=== PATIENT | male | born 2000 | race Caucasian/White ===

== ENCOUNTER 2021-01-01 06:21 | Day surgery (SDC) | payer OTHER ==
[2021-01-01] VITALS (7 sets, daily range): BP systolic 98–118; BP diastolic 54–59
[~2021-01-01] VITALS: Ht 175.3 cm; Wt 57.8 kg
[2021-01-01] MEDS ORDERED: ONDANSETRON 4MG/2ML VIAL IV ONE (07:15)
[2021-01-01] MEDS ORDERED: KETOROLAC 30 MG/ML 1ML VIAL IV ONE (07:15)
[2021-01-01] MEDS ORDERED: NS 1,000 ML IV ONE (07:15)
[2021-01-01 08:14] LABS: BASO # 0.1 10^3/uL (0.0-0.2); BASO % 0.3 % (0.0-1.0); EOS % 0.2 % (0.0-3.0); HEMATOCRIT 42.2 % (42.0-52.0); HEMOGLOBIN 15.7 g/dl (13.5-17.5); LYMPH # 0.9 10^3/uL (1.5-5.0); LYMPH % 4.5 % (24.0-44.0); MEAN CORPUSCULAR HEMOGLOBIN 31.1 pg (27.0-33.0); MEAN CORPUSCULAR VOLUME 83.6 fl (80.0-96.0); MONO # 1.3 10^3/uL (0.0-0.8); MONO % 6.7 % (2.0-8.0); NEUTROPHILS % 87.8 % (36.0-66.0); PLATELET COUNT, AUTOMATED 341 10^3/uL (150-450); RED BLOOD COUNT 5.05 10^6/uL (4.30-6.10); WHITE BLOOD COUNT 19.4 10^3/uL (4.0-10.0)
[2021-01-01 08:15] LABS: MEAN CORPUSCULAR HGB CONC 37.2 g/dl (32.0-36.5)
[2021-01-01 08:24] LABS: ALBUMIN 4.5 GM/DL (3.2-5.2); ALT/SGPT 52 U/L (12-78); BILIRUBIN,DIRECT 0.4 MG/DL (0.0-0.2); BILIRUBIN,TOTAL 1.1 MG/DL (0.2-1.0); BLOOD UREA NITROGEN 12 MG/DL (7-18); CALCIUM LEVEL 9.7 MG/DL (8.5-10.1); CARBON DIOXIDE LEVEL 24 MEQ/L (21-32); CHLORIDE LEVEL 104 MEQ/L (98-107); CREATININE FOR GFR 0.81 MG/DL (0.70-1.30); GLUCOSE, FASTING 129 MG/DL (70-100); LIPASE 37 U/L (73-393); POTASSIUM SERUM 3.5 MEQ/L (3.5-5.1); SODIUM LEVEL 138 MEQ/L (136-145); TOTAL PROTEIN 8.1 GM/DL (6.4-8.2)
--- NOTE | 2021-01-01 08:34 | REP ---
INDICATION: Abdominal Pain COMPARISON: None. TECHNIQUE: Upright view of the chest with supine and upright views of the abdomen and pelvis. FINDINGS: Frontal upright view of the chest demonstrates no acute cardiopulmonary process or free air below the diaphragm to suspect pneumoperitoneum. Supine and upright views of the abdomen and pelvis demonstrate nonspecific bowel gas pattern without obstruction or perforation. No organomegaly. No abnormal calcifications. Skeletal structures normal for age. IMPRESSION: Nonspecific bowel gas pattern. <Electronically signed by Richmond Drummond > 01/01/21 [id number]
[2021-01-01] MEDS ORDERED: ISOVUE-370 76% 100ML VIAL As Ordered ONE (10:04)
--- NOTE | 2021-01-01 10:27 | REP ---
INDICATION: diffuse abd pain, n/v, leukocytosis. COMPARISON: None TECHNIQUE: Axial contrast-enhanced images from the lung bases to the pubic symphysis using 100 cc Isovue 370 intravenous contrast material. . This CT examination was performed using the following dose reduction techniques: Automated exposure control, adjustment of mA and/or kv according to the patient's size, and the use of iterative reconstruction technique. FINDINGS: Acute appendicitis is appreciated with fluid-filled appendix measuring up to 20 mm including 5 mm appendicular in the proximal appendix and a 14 mm obstructing appendicolith at the base of the appendix. Mild surrounding inflammatory stranding noted. Small amount of free fluid extends into the pelvis. No free air or drainable collection/abscess. Liver, spleen, pancreas, gallbladder, bilateral adrenal glands and kidneys are normal. No evidence for bowel obstruction. Pelvis demonstrates normal bladder and age-appropriate prostate/seminal vesicles. Abdominal aorta and vasculature are normal. Surrounding musculoskeletal structures are intact. Lung bases are clear. IMPRESSION: 1. Acute appendicitis including 14 mm obstructing appendicolith at the base of the appendix distending the appendix to 20 mm with mild surrounding inflammatory stranding and small amount of free fluid. No evidence for drainable collection/abscess or free air to suggest perforation. <Electronically signed by Richmond Drummond > 01/01/21 [id number]
[2021-01-01] MEDS ORDERED: PIPERACILLIN/TAZOBACTAM SOD 3.375 GM in D5W MINI-BAG PLUS 50 ML IV ONE (11:15)
[2021-01-01] MEDS ORDERED: VITMTA PO (11:27)
[2021-01-01] MEDS ORDERED: CETI10CA2 PO (11:27)
[2021-01-01] MEDS ORDERED: LACT3000 PO (11:27)
[2021-01-01] MEDS ORDERED: ONDANSETRON 4MG/2ML VIAL IV PRN ×2 (11:50→15:20)
[2021-01-01 11:57] LABS: RSV AMPLIFICATION NEGATIVE (NEGATIVE)
[2021-01-01] MEDS: KETOROLAC 30 MG/ML 1ML VIAL IV PRN (12:25)
[2021-01-01] MEDS: NS 1,000 ML IV SCH ×2 (12:35→18:02)
[2021-01-01] MEDS ORDERED: LIDOCAINE 2% 100MG/5ML SDV (FOR ANES.) As Ordered ONE (12:56)
[2021-01-01] MEDS ORDERED: KETOROLAC 60MG 2ML VIAL As Ordered ONE (12:56)
[2021-01-01] MEDS ORDERED: ROCURONIUM BROMIDE 50 MG/5 ML VIAL As Ordered ONE (12:56)
[2021-01-01] MEDS ORDERED: propofoL 200 MG/20 ML VIAL As Ordered ONE (12:56)
[2021-01-01] MEDS ORDERED: dexameTHASONE 4 MG/ML 1ML VIAL (J1100 PER 1MG) As Ordered ONE (12:56)
[2021-01-01] MEDS ORDERED: ONDANSETRON 4MG/2ML VIAL As Ordered ONE (12:56)
[2021-01-01] MEDS ORDERED: MIDAZOLAM INJ 2MG/2ML VIAL (J2250 PER 1MG) As Ordered ONE (12:56)
[2021-01-01] MEDS ORDERED: SUGAMMADEX SODIUM 500 MG/5 ML VIAL (BRIDION) As Ordered ONE (12:56)
[2021-01-01] MEDS ORDERED: ACETAMINOPHEN 1000MG 100ML IV BTL (OFIRMEV) (J0131 PER 10MG) As Ordered ONE (12:56)
[2021-01-01] MEDS ORDERED: fentaNYL 100 MCG/2 ML INJECTION (J3010) As Ordered ONE ×2 (12:57→14:26)
[2021-01-01] MEDS ORDERED: BUPIVACAINE/EPIN 0.25% 30 ML VIAL As Ordered ONE (13:53)
[2021-01-01] MEDS ORDERED: HYDROMORPHONE HCL 0.5 MG/ 0.5 ML SYRINGE (J1170 PER 1) IV PRN (15:20)
[2021-01-01] MEDS ORDERED: LR 500 ML IV SCH (15:20)
[2021-01-01] MEDS ORDERED: METOCLOPRAMIDE INJ 10MG/2ML VIAL (J2765 PER 1) IV PRN (15:20)
[2021-01-01] MEDS ORDERED: MEPERIDINE INJ 25 MG/ML VIAL (J2175) IV PRN (15:20)
[2021-01-01] MEDS: SENOKOT S TAB PO SCH ×2 (17:46→20:27)
[2021-01-01] MEDS: PANTOPRAZOLE 40MG TAB (PROTONIX) PO SCH (17:46)
[2021-01-01] MEDS: NORCO, ANEXSIA 5/325MG TABLET (HYDROcodone/ACETAMINOPHEN) PO PRN (18:00)
[2021-01-01] MEDS: PIPERACILLIN/TAZOBACTAM SOD 3.375 GM in D5W MINI-BAG PLUS 50 ML IV SCH ×2 (18:03→23:35)
--- NOTE | 2021-01-01 23:39 | CR ---
CONSULTATION DATE: 01/01/2021 REASON FOR CONSULTATION: Abdominal pain HISTORY OF PRESENT ILLNESS: The patient is a 20-year-old male who presents with right lower quadrant abdominal pain, nausea and vomiting. His pain has been going on for the past day. It has been getting worse. He came into the Emergency Room, had an elevated white count, as well as a CT positive for appendicitis. Recommendation is to proceed with urgent surgery. I went to evaluate him in the Emergency Room. He had pretty significant tenderness, and also starting to have some fevers. The plan was to take him to the Operating Room for urgent surgery. PAST MEDICAL HISTORY: Negative. PAST SURGICAL HISTORY: Negative. ALLERGIES: None. HOME MEDICATIONS: None. SOCIAL HISTORY: Denies drug, alcohol or tobacco abuse. REVIEW OF SYSTEMS: Pertinent positives and negatives as stated in the HPI. PHYSICAL EXAMINATION: GENERAL APPEARANCE: Alert and oriented x3, in no acute distress. VITAL SIGNS: Temperature 101.5, pulse 110, respirations 16, blood pressure 92/46, pulse oximetry 99% on room air. HEENT: Pupils are equal, round and reactive to light and accommodation. HEART: S1, S2, regular rate and rhythm. LUNGS: Clear to auscultation bilaterally. ABDOMEN: Soft, tender to palpation in the right lower quadrant with localized guarding. No rigidity. EXTREMITIES: No clubbing, cyanosis, or edema. LABORATORY STUDIES: White count 19.4, hemoglobin 15.7, platelet count 341. IMAGING DATA: CT abdomen and pelvis was done which showed a dilated fluid filled appendix with an appendicolith in it, dilated appendix up to 2 cm in size. ASSESSMENT AND PLAN: The patient is a 20-year-old male with acute appendicitis. Recommendation is proceed with a laparoscopic appendectomy. The risks and benefits of the procedure not limited to but including bleeding, infection, hernias, damage to surrounding structures and need for further surgery was discussed in detail with the patient. Informed consent was obtained and the procedure was planned. Postoperatively, due to the elevated white count, he will kept in the hospital at least overnight. We will continue him on IV antibiotics, repeat labs in the morning and plan on discharge home after that.
[2021-01-02 02:00] VITALS: BP 100/48
[2021-01-02] MEDS: NORCO, ANEXSIA 5/325MG TABLET (HYDROcodone/ACETAMINOPHEN) PO PRN ×2 (02:54→09:40)
[2021-01-02] MEDS: NS 1,000 ML IV SCH ×3 (03:40→13:50)
[2021-01-02] MEDS: PIPERACILLIN/TAZOBACTAM SOD 3.375 GM in D5W MINI-BAG PLUS 50 ML IV SCH ×2 (05:18→12:33)
[2021-01-02 06:00] VITALS: BP 120/60
[2021-01-02] MEDS: KETOROLAC 30 MG/ML 1ML VIAL IV PRN ×2 (06:37→12:34)
[2021-01-02 07:40] LABS: HEMATOCRIT 33.9 % (42.0-52.0); MEAN CORPUSCULAR HGB CONC 35.7 g/dl (32.0-36.5); MEAN CORPUSCULAR VOLUME 86.9 fl (80.0-96.0); PLATELET COUNT, AUTOMATED 242 10^3/uL (150-450); WHITE BLOOD COUNT 17.7 10^3/uL (4.0-10.0)
[2021-01-02 07:41] LABS: HEMOGLOBIN 12.1 g/dl (13.5-17.5)
--- NOTE | 2021-01-02 08:16 | RO ---
OPERATIVE NOTE DATE OF OPERATION: 01/01/2021 PREOPERATIVE DIAGNOSIS: Acute appendicitis. POSTOPERATIVE DIAGNOSIS: Acute appendicitis. PROCEDURE: Laparoscopic appendectomy. SURGEON: Fracisco Amato DO DOCUMENTATION DESIGNER: None. ANESTHESIA: General. EBL: 5. COMPLICATIONS: None. INDICATIONS FOR PROCEDURE: The patient is a 20-year-old male who presents with right lower quadrant pain found to have acute appendicitis on CT. Recommendation made for to proceed with laparoscopic appendectomy. Risks and benefits of the procedure not limited to but including bleeding, infection, hernias, damage to surrounding structures, need for further surgery were discussed in detail with the patient, informed consent was obtained, procedure planned. DESCRIPTION OF PROCEDURE: The patient was brought back to operating room 1. After sufficient sedation the abdomen was sterilely prepped and draped. Time out was done to confirm proper patient, proper procedure. A 5 mm incision was made in the left upper quadrant, Veress needle inserted and the abdomen was insufflated to 15 mmHg. Veress needle was then removed. A 5 mm Optiview port was used to gain access to the abdomen. Once the abdomen was entered port was placed supraumbilically in the midline, another port suprapubic in midline. The right lower quadrant was examined. The appendix was very large and distended. However, the base was uninvolved from the inflammation. I was able to dissect through the mesoappendix all the way down to the base using the Enseal. Once that was completed the base was ligated with two PDS Endoloops. It was then amputated using the Enseal, placed inside 5 mm Endo Catch bag and brought out through the supraumbilical port site. Once that was removed the fascia of the umbilical port site was closed with [id number] #0 Vicryl suture. Once that was completed the abdomen was desufflated. Skin incisions were closed with 4-0 Vicryl subcuticular sutures. The abdomen was cleaned and dried; Steri-Strips, 4 x 4 and tape were applied. This ended the procedure.
[2021-01-02] MEDS ORDERED: AUGM875T28 PO (09:33)
[2021-01-02] MEDS ORDERED: HYDR-3715 PO (09:33)
[2021-01-02] MEDS: SENOKOT S TAB PO SCH (09:38)
[2021-01-02] MEDS: PANTOPRAZOLE 40MG TAB (PROTONIX) PO SCH (09:38)
[2021-01-02 10:00] VITALS: BP 110/62
[2021-01-02 12:40] LABS: HEMATOCRIT 35.3 % (42.0-52.0); HEMOGLOBIN 12.2 g/dl (13.5-17.5); MEAN CORPUSCULAR HEMOGLOBIN 30.9 pg (27.0-33.0); MEAN CORPUSCULAR HGB CONC 34.6 g/dl (32.0-36.5); MEAN CORPUSCULAR VOLUME 89.4 fl (80.0-96.0); PLATELET COUNT, AUTOMATED 245 10^3/uL (150-450); RED BLOOD COUNT 3.95 10^6/uL (4.30-6.10); WHITE BLOOD COUNT 14.7 10^3/uL (4.0-10.0)
--- NOTE | 2021-01-06 09:58 | DSES ---
DISCHARGE SUMMARY DATE OF ADMISSION: 01/01/2021 DATE OF DISCHARGE: 01/02/2021 ADMISSION DIAGNOSIS: Appendicitis. DISCHARGE DIAGNOSIS: Appendicitis. HOSPITAL COURSE: The patient is a 20-year-old male who presented on the with acute appendicitis. He was brought to the operating room for appendectomy. Postoperatively, he was doing well, tolerating a diet, ambulating around the room, and urinating without any difficulty. His white count was 19.4 on admission, so I kept him overnight with IV antibiotics. By the following morning, his white count was still 17.7; because of that, I kept him for at least another six hours to repeat labs. By noon, they had dropped down to 14.7. He was stable and pain was well-controlled. He was discharged home with a pain pill, as well as some p.o. antibiotics to take for a week. He is okay to shower. No baths or soaking water for five days. No lifting more than 20 pounds for two weeks. He will follow-up in the office in two weeks. All of his questions are answered and he will be discharged.
== END 2021-01-02 15:27 | disposition home or self-care (01) ==
LOC: M ED 06:21 → M SDC 12:03 → M MSPAV 16:00 → M SDC 01-02 15:27
PROVIDERS: ATTEND Surgery
DX: K35.890 Other acute appendicitis without perforation or gangrene (principal)
CPT/HCPCS: 36415; 44970; 74021; 74177; 80048; 80076; 81001; 83690; 85025; 85027; 87040; 87631; 88304; 96365; 96366; 96375; 96376; 99284; J0131; J1100; J1885; J2250; J2405; J2543; J3010; Q9967